=== PATIENT | male | born 1990 | race American Indian/Alaskan Native ===

== ENCOUNTER 2018-10-17 05:04 | Emergency (ER) | payer SELFPAY ==
[2018-10-17 05:12] VITALS: BP 115/83
[2018-10-17] MEDS ORDERED: BOOSTRIX IM ONE (05:53)
--- NOTE | 2018-10-17 05:58 | Emergency Department Report ---
ED Laceration HPI - HPI Chief Complaint: Laceration/Recheck/Suture Stated Complaint: THUMB LACERATION Time Seen by Provider: 10/17/18 05:53 Occurred When: Before Yesterday (Thursday10/13/18) Severity: mild Tetanus Status: Not up to Date Laceration Symptoms: Yes Pain Other History: 62 -[place] male presents to the emergency room for cut on his right thumb by accident on a knife 3 days ago. Patient stated was Thursday when he cut his finger. Patient stated started bleeding tonight and decided to come in. Patient reports pain is 6 out of 10. ED Review of Systems ROS: Stated complaint: THUMB LACERATION Other details as noted in HPI Comment: All other systems reviewed and negative Skin: other (cut on right thumb) ED Past Medical Hx - Past Medical History Previous Medical History?: No - Surgical History Past Surgical History?: No - Social History Smoking Status: Never Smoker Laceration Physical Exam - Exam General: Vital signs noted. No distress. Alert and acting appropriately. Wound Length (cm): 4 Laceration Location: Upper Extremity (right thumb) Laceration Exam: Yes Normal Distal CMS, No Foreign Body, No Exposed Tendon, Vessel, or Nerve, No Tendon Injury ED Course Vital Signs 10/17/18 10/17/18 05:07 05:11 Temperature 98.0 F 98.0 F Pulse Rate 82 80 Respiratory 18 18 Rate Blood Pressure 115/83 115/83 O2 Sat by Pulse 97 98 Oximetry ED Medical Decision Making - Medical Decision Making Patient has been evaluated by this provider in fast track. Discussed the patient has been greater than 12 hours and we will not be able to suture his laceration on his right thumb. Discussed the patient that there is no signs of infection is not read is not swollen there is no purulent discharge and has no fever. Discussed the patient we'll give him a tetanus shot he can place a Band-Aid on it. He should verbalize understanding Critical care attestation.: If time is entered above; I have spent that time in minutes in the direct care of this critically ill patient, excluding procedure time. ED Disposition Clinical Impression: Laceration of thumb Qualifiers: Encounter type: initial encounter Damage to nail status: without damage Foreign body presence: without foreign body Laterality: right Qualified Code(s): S61.011A - Laceration without foreign body of right thumb without damage to nail, initial encounter Disposition: DC-01 TO HOME OR SELFCARE Is pt being admited?: No Does the pt Need Aspirin: No Condition: Stable Instructions: Laceration (ED) Additional Instructions: Please keep wound clean and dry. He can place a Band-Aid to protect from dirt. Follow up with her primary care provider is you have further concerns Referrals: KIRIT CHARLES MD [Primary Care Provider] - 3-5 Days Forms: Work/School Release Form(ED), Accompanied Note
== END 2018-10-17 06:04 | disposition home or self-care (01) ==
LOC: ED 05:04
DX: S61.011A Laceration without foreign body of right thumb without damage to nail, initial encounter (principal); W26.0XXA Contact with knife, initial encounter; Y93.89 Activity, other specified; Y92.89 Other specified places as the place of occurrence of the external cause; Y99.8 Other external cause status
CPT/HCPCS: 90471; 90715; 99282